=== PATIENT | male | born 1985 | race Caucasian/White ===

== ENCOUNTER 2019-02-09 14:00 | Outpatient (RCR) | payer BC, SELFPAY ==
--- NOTE | 2019-01-03 11:56 | HP.PTEVAL_ITS ---
Patient's Visit Information JOSIANE HOWARD is a 33 year old M referred to Physical Therapy by Chintan Doll MD with a diagnosis of chronic knee pain. Date of Evaluation: 01/03/19 Physical Therapist: ANSON Engel - Visit Plan Frequency: 2x /Week Duration: 4 Weeks Plan: 2X/ week for 4 weeks for R knee and hip strengthening, stretching, OHS mechanics, stairs mechancis with HEP and modalities PRN..... also to give a [employer] gym routine. - Subjective Findings: Pt reports that his R knee has been bothering him and swelling for years now. About a year ago the swelling increased and stay longer and increased pain. 3 months ago it swelled up and did not come back down. Gave meloxicam and x-ray... cartilage. Ortho said lucila, PT and then possible MRI and scope. He wants a program to get stronger... and then either MRI or corizone shot. When it is not swelled up he can do anything but run. SInce the swelling has not got down, it feels weak and stairs bother it and walking too long increases swelling. He has popping sometimes or may hyper-extend. He put a lot of weight on the railing. He is a [employer] member and does the eliptical and upper body. He wears a cloth brace and that helps in the moment. He feels that the meloxicam helps. He has a desk job. - Pain R knee pain Pain Intensity (Out of 10): 0 Pain Intensity Range: 9 - Objective Gait: Walks with decrease stance time on the right. Knee AROM: normal AROM of the R knee. Stairs: decrease eccentric control descending stairs and gastroc tightness. Tight R HS, gastroc and Quad. LE MMT: hip flexion B 4+/5, knee ext R 4/5 and L 4+/5, Knee flex R 4/5 and L 4+/5, B hip abd 4+/5, B hip ext 4/5. + pain with mcmurrays on the R with valgus at 90 degrees. OHS: decreased stance onthe R LE. SLB R 20 sec straight knee and SLB R with bend knee 15 sweconds. SLB L 15 seconds with straight knee and 30 seconds with bent knee - Goals Goal 1:: I HEP Goal Time Frame: 4-6 Weeks Goal 2:: Increase gait pattern to walk with normal gait pattern Goal Time Frame: 4-6 Weeks Goal 3:: Be able to go up and down stairs recip without a railing smoothly without antalgic gait Goal Time Frame: 4-6 Weeks Goal 4:: Be able to perform a normal OHS without weight shifting away from the R LE Goal Time Frame: 4-6 Weeks Goal 5:: Increase HS, gastroc and quad felxibiltiyt on the R. Goal Time Frame: 4-6 Weeks - Rehabilitation Potential Rehabilitation Potential: Good - Anticipated Interventions Patient/Client Instruction: Educate patient on: Condition, Plan of Care For the Purpose of:: To decrease pain, To decrease swelling/inflammation, To increase ROM, To improve nutrient delivery to tissue, To improve muscle performance and motor function, To improve ability to perform ADL's, To increase tolerance to activity/condition/position, To improve performance and independence with ADL's, To improve ability of physical actions for home/community/work/leisure, To improve gait and locomotor functions, To improve health of tissue, To increase flexibility/ROM, To improve balance Therapeutic Exercise to Include: Strength training, Flexibilty training, Gait an d locomotor training, Active ROM For the Purpose of:: To decrease pain, To decrease swelling/inflammation, To increase ROM, To improve nutrient delivery to tissue, To improve ability to perform ADL's, To increase tolerance to activity/condition/position, To improve ability of physical actions for home/community/work/leisure, To improve gait and locomotor functions, To improve health of tissue, To decrease soft tissue restriction, To increase flexibility/ROM IF ES: Yes Thermo therapy (hot pack): Yes Ultrasound (thermal/non thermal): Yes For the Purpose of:: To decrease pain, To decrease swelling/inflammation, To increase ROM, To improve nutrient delivery to tissue Thank you for the opportunity to evaluate your patient. For Medicare and Medicare HMO plans, please review the plan of care and approve it. It will need to be FAXED BACK to us at [phone] for Medicare purposes. For Medicare only, by signing this I certify the plan of care. Please let me know if there are questions or concerns regarding this plan of care. Physician Signature: Date:
--- NOTE | 2019-02-09 14:25 | HP.PTEVAL_ITS ---
Patient's Visit Information JOSIANE HOWARD is a 33 year old M referred to Physical Therapy by Chintan Doll MD with a diagnosis of chronic knee pain. Date of Evaluation: 01/03/19 Physical Therapist: ANSON Engel - Visit Plan Frequency: 2x /Week Duration: 4 Weeks Plan: DC PT to [facility] - Subjective Findings: Pt reports that his R knee has been bothering him and swelling for years now. About a year ago the swelling increased and stay longer and increased pain. 3 months ago it swelled up and did not come back down. Gave meloxicam and x-ray... cartilage. Ortho said cortizone, PT and then possible MRI and scope. He wants a program to get stronger... and then either MRI or corizone shot. When it is not swelled up he can do anything but run. SInce the swelling has not got down, it feels weak and stairs bother it and walking too long increases swelling. He has popping sometimes or may hyper-extend. He put a lot of weight on the railing. He is a [employer] member and does the eliptical and upper body. He wears a cloth brace and that helps in the moment. He feels that the meloxicam helps. He has a desk job. - Pain R knee pain Pain Intensity (Out of 10): 0 Pain Intensity Range: 9 - Objective Gait: Walks with decrease stance time on the right. Knee AROM: normal AROM of the R knee. Stairs: decrease eccentric control descending stairs and gastroc tightness. Tight R HS, gastroc and Quad. LE MMT: hip flexion B 4+/5, knee ext R 4/5 and L 4+/5, Knee flex R 4/5 and L 4+/5, B hip abd 4+/5, B hip ext 4/5. + pain with mcmurrays on the R with valgus at 90 degrees. OHS: decreased stance onthe R LE. SLB R 20 sec straight knee and SLB R with bend knee 15 sweconds. SLB L 15 seconds with straight knee and 30 seconds with bent knee - Goals Goal 1:: I HEP Goal Time Frame: 4-6 Weeks Goal 2:: Increase gait pattern to walk with normal gait pattern Goal Time Frame: 4-6 Weeks Goal 3:: Be able to go up and down stairs recip without a railing smoothly without antalgic gait Goal Time Frame: 4-6 Weeks Goal 4:: Be able to perform a normal OHS without weight shifting away from the R LE Goal Time Frame: 4-6 Weeks Goal 5:: Increase HS, gastroc and quad felxibiltiyt on the R. Goal Time Frame: 4-6 Weeks - Rehabilitation Potential Rehabilitation Potential: Good - Anticipated Interventions Patient/Client Instruction: Educate patient on: Condition, Plan of Care For the Purpose of:: To decrease pain, To decrease swelling/inflammation, To increase ROM, To improve nutrient delivery to tissue, To improve muscle performance and motor function, To improve ability to perform ADL's, To increase tolerance to activity/condition/position, To improve performance and independence with ADL's, To improve ability of physical actions for gene e/community/work/leisure, To improve gait and locomotor functions, To improve health of tissue, To increase flexibility/ROM, To improve balance Therapeutic Exercise to Include: Strength training, Flexibilty training, Gait and locomotor training, Active ROM For the Purpose of:: To decrease pain, To decrease swelling/inflammation, To increase ROM, To improve nutrient delivery to tissue, To improve ability to perform ADL's, To increase tolerance to activity/condition/position, To improve ability of physical actions for home/community/work/leisure, To improve gait and locomotor functions, To improve health of tissue, To decrease soft tissue restriction, To increase flexibility/ROM IF ES: Yes Thermo therapy (hot pack): Yes Ultrasound (thermal/non thermal): Yes For the Purpose of:: To decrease pain, To decrease swelling/inflammation, To increase ROM, To improve nutrient delivery to tissue Thank you for the opportunity to evaluate your patient. For Medicare and Medicare HMO plans, please review the plan of care and approve it. It will need to be FAXED BACK to us at [phone] for Medicare purposes. For Medicare only, by signing this I certify the plan of care. Please let me know if there are questions or concerns regarding this plan of care. Physician Signature: Date:
--- NOTE | 2019-04-04 13:12 | HP.PTDCSUM ---
HP - PT D/C Summary It has been my pleasure to treat JOSIANE HOWARD under orders from Chintan Doll MD, for the diagnosis of chronic knee pain for a total of 8 visit(s). Discharge Date: 04/04/19 Please see the following information for a summary of their discharge status. - Subjective Subjective: He feels that he has gotten a lot stronger. He was playing volley ball and twisted it pretty good but it is feeling better - Pain R knee pain Pain Intensity (Out of 10): 0 - Overall Improvement % Improvement: 70 - Objective Objective/Function: Gait: walks occ with decreased stance time on the R LE. Stairs: up and down recip without a handrail with slightly decreased fluid motion ( eccentric control) on the R LE. OHS: Still kevin shifts away from the R side. I In how to set up gym equipment. Improved overall flexibility but needs to continue to stretch on own after PT - Goals Goal 1:: I HEP Goal Progress: Goal Met Goal 2:: Increase gait pattern to walk with normal gait pattern Goal Progress: Progressing Goal 3:: Be able to go up and down stairs recip without a railing smoothly without antalgic gait Goal Progress: Progressing Goal 4:: Be able to perform a normal OHS without weight shifting away from the R LE Goal Progress: Progressing Goal 5:: Increase HS, gastroc and quad felxibiltiyt on the R. Goal Progress: Progressing - Plan Plan: DC PT to [facility] - D/C Information Discharge Comments: DC PT If there are questions or concerns regarding this patient's physical therapy, please feel free to call me at [phone]. Thank you for the referral of this patient. Sincerely, Valerie Loomis, MPT
== END 2019-02-09 19:00 | disposition home or self-care (01) ==
LOC: PT 14:00
PROVIDERS: PCP Family Medicine; Referring Provider Family Medicine; Visit Provider Orthopaedic Surgery
DX: M25.561 Pain in right knee (principal); M25.461 Effusion, right knee; G89.29 Other chronic pain
CPT/HCPCS: 97014; 97016; 97110; 97161; 97530; G0283

== ENCOUNTER 2021-08-09 04:59 | Emergency (ER) | payer BC, SELFPAY ==
[2021-08-09 05:00] VITALS: BP 132/92; PULSE 70; RESP 18; TEMP 36.6; O2SAT 97; BMI 29.9
--- NOTE | 2021-08-09 05:23 | CT_ITS ---
STUDY: CT ABDOMEN AND PELVIS WITHOUT CONTRAST REASON FOR EXAM: Male, 36 years old. left flank pain RADIATION DOSAGE (If Supplied By Facility): CTDIvol = ( 9.49 ) mGy, DLP = ( 583.30 ) mGycm TECHNIQUE: Transaxial 2.5 mm images were obtained from the dome of the diaphragm to the symphysis pubis without oral contrast, and without intravenous contrast. Sagittal and coronal images were reconstructed. This examination is limited for the evaluation of gastrointestinal, solid organs and vascular structures due to the lack of intravenous and oral contrast. Individualized dose optimization techniques were used for this CT. COMPARISON: None. FINDINGS: The visualized lung bases are unremarkable. The visualized portions of the heart are within normal limits. Normal liver. Normal gallbladder and extrahepatic biliary system. Normal spleen. Normal pancreas. Normal bilateral adrenal glands. Normal right kidney. There is a calculus in the left inferior renal pelvis/pole measuring approximately 0.4 x 0.6 x 0.5 cm with mild dilatation of the renal pelvis to the level of the UPJ. There is minimal perirenal stranding and indistinct contour of the left kidney. The left ureter is nondilated. Normal visualized stomach. Normal small intestine. Normal colon. The appendix is visualized and appears normal. Normal abdominal aorta. Normal inferior vena cava. Normal retroperitoneum. Decompressed urinary bladder. Normal visualized prostate gland. Normal abdominal wall. Normal osseous structures. CT/Abdomen/Pelvis without Cont IMPRESSION: Left inferior renal pole/lower pelvic calculus with mild pelvic dilatation to the level of the UPJ may be a mobile intermittent obstructing calculus. No overt hydronephrosis detected. Similar findings can be seen with inflammation which is statistically less frequent. There is no appendicitis, colitis, ascites, abscess, collection, perforation or obstruction. Electronically Signed: Josy Bray MD at 6:17 EST Reading Location ID and State: , Service support ,
--- NOTE | 2021-08-09 05:24 | EDS_ITS ---
HPI History of Present Illness Chief Complaint: Flank Pain Informant: patient Onset/Context/Timing Onset: Today Current Severity: Mild Maximum Severity: Moderate Narrative Narrative: Patient present secondary to left flank pain that woke him from sleep shortly prior to arrival. He did have some mild nausea. No dysuria or hematuria. Patient did have a kidney stone 7 years ago. No prior abdominal surgeries. PFS PFS Medical History Kidney stone Medical History no medical history Home Medications hydrocodone-acetaminophen 1 tab PO Q6H PRN 3 Days #10 tab 08/09/21 [Rx Last Taken Unknown] ketorolac 10 mg PO Q6H PRN 3 Days #10 tab 08/09/21 [Rx Last Taken Unknown] ondansetron 4 mg PO Q8H PRN #10 tab 08/09/21 [Rx Last Taken Unknown] Allergy/AdvReac Type Severity Reaction Status Date / Time No Known Allergies Allergy Verified 06/22/15 14:23 Surgical History no surgical history Social History Smoking Status: Never smoker ROS ROS ED Constitutional Constitutional ED: Denies chills or fever(s) Eyes Eyes: Denies blurry vision or change in vision ENT ENT ED: Denies ear pain or rhinorrhea Cardiovascular Cardiovascular: Denies chest pain or palpitations Respiratory/Chest Respiratory/Chest: Denies cough or dyspnea Gastrointestinal Gastrointestinal: Reports abdominal pain and nausea; Denies vomiting Genitourinary Genitourinary ED: Denies dysuria or hematuria Musculoskeletal Musculoskeletal: Reports back pain; Denies arthralgias or myalgias Integumentary Denies rash Neurologic Neurologic: Denies headache(s) or weakness Psychiatric Psychiatric: Denies anxiety or depression Allergic/Immunologic Allergic/Immunologic ED: Denies urticaria EXAM Physical Exam Const Vital Signs: 08/09/21 05:00 Temperature 97.8 F Temperature Source Temporal Pulse Rate 70 Respiratory Rate 18 Blood Pressure 132/92 H Blood Pressure Mean 105 Pulse Ox 97 Oxygen Delivery Method Room Air Positive well nourished and well developed General Appearance ED: well developed HEENT Reports moist mucous membranes Eyes PERRL and EOMs intact bilaterally Neck supple Chest Wall inspection of chest normal and palpation of chest normal Resp normal respiratory effort and clear to auscultation bilaterally Cardio regular rate and regular rhythm GI Palpation: soft and tender LLQ Back/Spine no CVA tenderness Neuro oriented x3 Sensorium / Orientation: alert Psych mental status grossly normal Skin no rashes or lesions noted MDM MDM MDM Narrative Medical decision making narrative: Patient is given Toradol and Zofran for pain. Lab work, urinalysis, CT flank obtained. Lab Data Attestation: I reviewed the patient's lab results. Labs: Laboratory Results - last 24 hr 08/09/21 08/09/21 08/09/21 05:25 05:25 05:25 WBC 5.1 RBC 4.89 Hgb 15.2 Hct 42.6 MCV 87.1 MCH 31.1 MCHC 35.7 RDW Std Deviation 38.9 RDW Coeff of Danita 12.3 Plt Count 226 MPV 9.8 Immature Gran % (Auto) 0.200 Neut % (Auto) 39.0 L Lymph % (Auto) 49.7 H [place] % (Auto) 8.2 Eos % (Auto) 2.3 Baso % (Auto) 0.6 Absolute Neuts (auto) 2.0 Absolute Lymphs (auto) 2.55 Nucleated RBC % 0 Sodium 140 Potassium 3.5 Chloride 108 H Carbon Dioxide 27.0 Anion Gap 5 BUN 11 Creatinine 1.08 Estim Creat Clear Calc 111.93 Est GFR (MDRD) Af Amer 99 Est GFR (MDRD) Non-Af 82 BUN/Creatinine Ratio 10.2 Glucose 114 H Calcium 9.1 Urine Color Yellow Urine Clarity Clear Urine pH 5.0 Ur Specific [place] 1.025 Urine Protein 15 H Urine Glucose (UA) Normal Urine Ketones Negative Urine Occult Blood 50 H Urine Nitrite Negative Urine Bilirubin Negative Urine Urobilinogen Normal Ur Leukocyte Esterase Negative Urine RBC 0 SEEN Urine WBC 0 SEEN Ur Squamous Epith Cells 0 SEEN Urine Bacteria 0 SEEN Urine Mucus 0 SEEN Radiography Diagnostic Testing: Clinical Impression(s) from Imaging Studies Abdomen/Pelvis CT 08/09/21 05:23 IMPRESSION: Left inferior renal pole/lower pelvic calculus with mild pelvic dilatation to the level of the UPJ may be a mobile intermittent obstructing calculus. No overt hydronephrosis detected. Similar findings can be seen with inflammation which is statistically less frequent. There is no appendicitis, colitis, ascites, abscess, collection, perforation or obstruction. Electronically Signed: Josy Bray MD at 6:17 EST Reading Location ID and State: , Service support , Treatment and Re-Evaluation Comments:: On repeat evaluation patient resting comfortably with no pain at this time. Lab work unremarkable with normal renal function. Urinalysis with no sign of infection. CT flank reveals a stone at the inferior renal pole with mild dilation to the level of the UPJ. They believe this may be in a mobile intermittent obstructing calculus. This was discussed with the patient. He will be given pain and nausea medicine for home as needed. He is referred to urology for follow-up. Discharge Plan Triage Chief Complaint: Flank Pain ED Provider: Ellen Ward Dx/Rx/DC Orders Clinical Impression: Calculus of left kidney Instructions: ED Kidney Stone w/ Colic Prescriptions: New ketorolac 10 mg tablet 10 mg PO Q6H PRN (Reason: pain) 3 Days Qty: 10 RF: 0 hydrocodone-acetaminophen 5-325 mg tablet 1 tab PO Q6H PRN (Reason: pain) 3 Days Qty: 10 RF: 0 ondansetron 4 mg tablet,disintegrating 4 mg PO Q8H PRN (Reason: nausea and vomiting) Qty: 10 RF: 0 Primary Care Provider: Kunal Ledezma Referrals: Kunal Ledezma MD [Primary Care Provider] - Ti Becker MD [STAFF PHYSICIAN] - 3-5 Days if not improving Disposition Disposition: Home, Self Care
[2021-08-09 05:29] LABS: Absolute Lymphocyte Count 2.55 X10^3/uL (0.83-4.51); Basophil# 0.03 X10^3/uL; Basophil% 0.6 % (0-1); Eosinophil# 0.12 X10^3/uL; Eosinophils% 2.3 % (0-5); Hematocrit 42.6 % (40-54); Hemoglobin 15.2 g/dL (13.0-16.5); Lymphocyte # 2.55 X10^3/ul (0.83-4.51); Lymphocyte % 49.7 % (19-41); Mean Corp Hgb Conc 35.7 g/dL (32-36); Mean Corpuscular Hgb 31.1 pg (27.0-32.0); Mean Corpuscular Volume 87.1 fL (80-94); Mean Platelet Vol. 9.8 fl (6.2-12.0); Monocyte# 0.42 X10^3/uL; Monocyte% 8.2 % (0-10); NRBC Flagged by Analyzer 0 % (0-5); Platelet Count 226 K/mm3 (150-450); RBC Distribution Width CV 12.3 % (11.6-14.6); RBC Distribution Width SD 38.9 fl (35.1-43.9); Red Blood Count 4.89 M/mm3 (4.6-6.2); White Blood Count 5.1 K/mm3 (4.4-11.0)
[2021-08-09] MEDS: 0.9% Normal Saline 1,000 ML 150 ML IV (05:33)
[2021-08-09] MEDS: Ondansetron 4 MG/2 ML Vial IV (05:33)
[2021-08-09] MEDS: Ketorolac 30 MG/ML Syringe IV (05:33)
[2021-08-09 05:34] LABS: Bacteria 0 SEEN /hpf (None Seen); Mucous, Urine 0 SEEN /hpf (<or=2+); Red Blood Cells-Urine 0 SEEN /hpf (0-5); Squamous Epithelial Cells - UA 0 SEEN /hpf (0-5); White Blood Cells 0 SEEN /hpf (0-5)
[2021-08-09 05:35] LABS: Color, Urine Yellow (Yellow); Glucose, Dipstick Normal (Normal); Ketone-Dipstick Negative (Negative); Leukocyte Esterase-Dipstick Negative /ul (Negative); Nitrite-Dipstick Negative (Negative); Occult Blood-Urine 50 /ul (Negative); Protein-Dipstick 15 mg/dl (Negative); Specific Gravity, Urine 1.025 (1.002-1.030); Urine Bilirubin Dipstick Negative (Negative); Urine Clarity Clear (Clear); Urine Urobilinogen Normal (Normal)
[2021-08-09 06:02] LABS: Anion Gap 5 (5-15); BUN 11 mg/dL (7-18); BUN/Creat Ratio 10.2 RATIO (10-20); Calcium,Total 9.1 mg/dL (8.5-10.1); Chloride 108 mmol/L (98-107); Creatinine, Serum 1.08 mg/dL (0.70-1.30); EST Glomerular Filtration Rate 82 mL/min (>60); Est Glom Filt Rate - Afr Amer 99 mL/min (>60); Estimated Creatinine Clearance 111.93 ml/min; Glucose 114 mg/dL (74-106); Potassium 3.5 mmol/L (3.5-5.1); Sodium Level 140 mmol/L (136-145)
[2021-08-09 06:35] VITALS: BP 128/78; PULSE 78; RESP 19; O2SAT 96
== END 2021-08-09 06:36 | disposition home or self-care (01) ==
PROVIDERS: Emergency Provider Emergency Medicine; PCP Family Medicine; Visit Provider Emergency Medicine
DX: N20.0 Calculus of kidney (principal); R11.0 Nausea; Z87.442 Personal history of urinary calculi
CPT/HCPCS: 74176; 80048; 81001; 85025; 99283; J7030; A4216; J2405

== ENCOUNTER 2022-12-20 19:06 | Emergency (ER) | payer BC, SELFPAY ==
[2022-12-20 19:07] VITALS: BP 146/84; PULSE 72; RESP 18; TEMP 36.4; O2SAT 97; BMI 29.7
--- NOTE | 2022-12-20 19:33 | EX.ED.DYSGE1 ---
HPI History of Present Illness Chief Complaint: Flank Pain Detail of Chief Complaint: Left flank pain Informant: patient Onset/Context/Timing Onset: Today Narrative Narrative: Patient presents secondary to increased left flank pain. He had lithotripsy performed 2 days ago. He believes his stone was somewhere between 7 and 10 mm. He states he felt well yesterday and was only taking Tylenol. He had increased pain today. He did take hydrocodone earlier today without improvement. He states he is passing some small stones. He is not noticing bloody urine. [facility] Medical History Kidney stone Home Medications hydrocodone-acetaminophen 5-325mg 5mg-325mg 1 tab PO Q6H PRN pain 3 days #10 tabs 08/09/21 [Rx Last Taken Unknown] ketorolac 10 mg tablet 10 mg PO Q6H PRN pain 3 days #10 tabs 08/09/21 [Rx Last Taken Unknown] ondansetron 4 mg disintegrating tablet 4 mg PO Q8H PRN nausea and vomiting #10 tabs 08/09/21 [Rx Last Taken Unknown] Allergy/AdvReac Type Severity Reaction Status Date / Time No Known Allergies Allergy Verified 12/20/22 19:07 Social History Smoking Status: Never smoker ROS ROS ED Constitutional Constitutional ED: Denies chills or fever(s) Eyes Eyes: Denies change in vision or discharge from eye(s) ENT ENT ED: Denies discharge from eye(s), rhinorrhea or sore throat Cardiovascular Cardiovascular: Denies chest pain or palpitations Respiratory/Chest Respiratory/Chest: Denies cough or dyspnea Gastrointestinal Gastrointestinal: Reports abdominal pain; Denies diarrhea, nausea or vomiting Genitourinary Genitourinary ED: Denies dysuria Musculoskeletal Musculoskeletal: Reports back pain; Denies extremity pain Integumentary Denies Abrasions or rash Neurologic Neurologic: Denies headache(s) or weakness Psychiatric Psychiatric: Denies anxiety or depression Allergic/Immunologic Allergic/Immunologic ED: Denies lip swelling or urticaria EXAM Physical Exam Const Vital Signs: 12/20/22 19:07 12/20/22 21:06 Temperature 97.6 F L Temperature Source Temporal Pulse Rate 72 78 Respiratory Rate 18 14 Blood Pressure 146/84 H 126/78 H Blood Pressure Mean 104 94 Pulse Ox 97 99 Oxygen Delivery Method Room Air Positive well nourished and well developed General Appearance ED: well developed HEENT Reports normocephalic and head/scalp atraumatic Eyes PERRL and EOMs intact bilaterally Neck supple Chest Wall inspection of chest normal and palpation of chest normal Resp normal respiratory effort and clear to auscultation bilaterally Cardio regular rate and regular rhythm GI non-tender Auscultation: hypoactive bowel sounds Palpation: soft Extremity normal to inspection Neuro oriented x3 and no sensory deficits noted Sensorium / Orientation: alert Motor Exam: strength 5/5 throughout Psych mental status grossly normal Skin no rashes or lesions noted MDM MDM MDM Narrative Medical decision making narrative: Patient was given morphine, Zofran, Toradol, IV fluids. Labwork obtained to evaluate for leukocytosis, anemia, and electrolyte derangement. Urinalysis obtained to evaluate for infection/hematuria. KUB obtained to evaluate for kidney stone or enlarged kidney. Lab Data Attestation: I reviewed the patient's lab results. Labs: Laboratory Results - last 24 hr 12/20/22 12/20/22 19:35 20:00 WBC 7.2 RBC 4.77 Hgb 14.4 Hct 41.0 MCV 86.0 MCH 30.2 MCHC 35.1 RDW Std Deviation 37.5 RDW Coeff of Danita 12.0 Plt Count 190 MPV 9.5 Immature Gran % (Auto) 0.300 Neut % (Auto) 57.3 Lymph % (Auto) 35.2 [place] % (Auto) 5.8 Eos % (Auto) 1.0 Baso % (Auto) 0.4 Absolute Neuts (auto) 4.1 Absolute Lymphs (auto) 2.54 Nucleated RBC % 0 Sodium 138 Potassium 3.4 L Chloride 104 Carbon Dioxide 30.0 Anion Gap 4 L BUN 14 Creatinine 1.06 Estim Creat Clear Calc 112.93 Est GFR (MDRD) Af Amer 100 Est GFR (MDRD) Non-Af 83 BUN/Creatinine Ratio 13.2 Glucose 137 H Calcium 8.8 Total Bilirubin 0.50 AST 24 ALT 43 Alkaline Phosphatase 55 Total Protein 6.9 Albumin 3.9 Globulin 3.0 Albumin/Globulin Ratio 1.3 Urine Color Yellow Urine Clarity Clear Urine pH 5.0 Ur Specific [place] 1.025 Urine Protein 30 H Urine Glucose (UA) Normal Urine Ketones Negative Urine Occult Blood 250 H Urine Nitrite Negative Urine Bilirubin Negative Urine Urobilinogen Normal Ur Leukocyte Esterase 25 H Urine RBC 50-100 SEEN Urine WBC 0-5 SEEN Ur Squamous Epith Cells 0 SEEN Urine Bacteria 0 SEEN Urine Mucus 0 SEEN Radiography Diagnostic Testing: Clinical Impression(s) from Imaging Studies KUB X-Ray 12/20/22 20:00 IMPRESSION: No renal or ureteral calcifications seen. Electronically Signed: Julio White MD at 21:15 EDT , Treatment and Re-Evaluation :: CBC was normal white count 7.2 with a hemoglobin of 14.4. Chemistry studies reveal slightly low potassium at 3.4. BUN is 14 and creatinine is 1.06. Glucose is 137. LFTs are unremarkable. Urinalysis reveals 50-100 RBCs with no sign of infection. KUB per my interpretation reveals no obvious calcifications on the left. No obvious hydronephrosis or kidney enlargement. Radiology interpretation is reviewed and agrees. On repeat evaluation patient resting more comfortably. Test results are discussed with him. I did recommend he start taking ibuprofen 3 times a day to help with ureteral spasm. He has hydrocodone at home that he can use for breakthrough pain. Return instructions given. Discharge Plan Triage Chief Complaint: Flank Pain ED Provider: Ellen Ward Dx/Rx/DC Orders Clinical Impression: Flank pain Instructions: ED Kidney Stone w/ Colic Prescriptions: No Action ketorolac 10 mg tablet 10 mg PO Q6H PRN (Reason: pain) 3 Days Qty: 10 0RF hydrocodone-acetaminophen 5-325 mg tablet 1 tab PO Q6H PRN (Reason: pain) 3 Days Qty: 10 0RF ondansetron 4 mg tablet,disintegrating 4 mg PO Q8H PRN (Reason: nausea and vomiting) Qty: 10 0RF Primary Care Provider: Kunal Ledezma Referrals: Kunal Ledezma MD [Primary Care Provider] - Activity Restrictions/Additional Instructions: Follow-up with your urologist as scheduled. Disposition Disposition: Home, Self Care
[2022-12-20 19:42] LABS: Absolute Lymphocyte Count 2.54 X10^3/uL (0.83-4.51); Absolute Neutrophil Count 4.1 X10^3/uL (2.0-7.7); Basophil# 0.03 X10^3/uL; Basophil% 0.4 % (0-1); Eosinophil# 0.07 X10^3/uL; Hemoglobin 14.4 g/dL (13.0-16.5); Lymphocyte # 2.54 X10^3/ul (0.83-4.51); Lymphocyte % 35.2 % (19-41); Mean Corp Hgb Conc 35.1 g/dL (32-36); Mean Corpuscular Hgb 30.2 pg (27.0-32.0); Mean Platelet Vol. 9.5 fl (6.2-12.0); Monocyte# 0.42 X10^3/uL; Monocyte% 5.8 % (0-10); NRBC Flagged by Analyzer 0 % (0-5); Neutrophil # 4.13 X10^3/uL (2.7-7.7); Neutrophil % 57.3 % (47-70); Platelet Count 190 K/mm3 (150-450); RBC Distribution Width SD 37.5 fl (35.1-43.9); Red Blood Count 4.77 M/mm3 (4.6-6.2); White Blood Count 7.2 K/mm3 (4.4-11.0)
[2022-12-20] MEDS: 0.9% Normal Saline 1,000 ML 150 ML IV (19:54)
[2022-12-20] MEDS: Ondansetron 4 MG/2 ML Vial IV (19:54)
[2022-12-20] MEDS: Ketorolac 30 MG/ML Syringe IV (19:54)
[2022-12-20] MEDS: Morphine 4 MG/ML Syringe IV (19:55)
--- NOTE | 2022-12-20 20:00 | RAD_ITS ---
INDICATION: flank pain s/p lithotripsy EXAMINATION/TECHNIQUE: X-RAY - XR Abdomen 1 View COMPARISON: None FINDINGS: BOWEL GAS PATTERN: Non-obstructive. No bowel or stomach distention. FREE AIR: Not assessed on a single supine view. ORGANOMEGALY: Not seen. CALCIFICATIONS: No abnormal calcifications observed. LOWER CHEST: No acute pathology. BONES AND SOFT TISSUES: No acute pathology. RAD/Abdomen Single View IMPRESSION: No renal or ureteral calcifications seen. Electronically Signed: Julio White MD at 21:15 EDT ,
[2022-12-20 20:05] LABS: Bacteria 0 SEEN /hpf (None Seen); Mucous, Urine 0 SEEN /hpf (<or=2+); Squamous Epithelial Cells - UA 0 SEEN /hpf (0-5)
[2022-12-20 20:07] LABS: Color, Urine Yellow (Yellow); Glucose, Dipstick Normal (Normal); Ketone-Dipstick Negative (Negative); Leukocyte Esterase-Dipstick 25 /ul (Negative); Nitrite-Dipstick Negative (Negative); Occult Blood-Urine 250 /ul (Negative); Protein-Dipstick 30 mg/dl (Negative); Specific Gravity, Urine 1.025 (1.002-1.030); Urine Bilirubin Dipstick Negative (Negative); Urine Clarity Clear (Clear); Urine Urobilinogen Normal (Normal)
[2022-12-20 20:08] LABS: ALB/GLOB Ratio 1.3 RATIO (0.9-2.4); AST(SGOT) 24 U/L (15-37); Alanine Aminotransfer ALT/SGPT 43 U/L (16-61); Albumin, Serum 3.9 g/dL (3.2-5.0); Alkaline Phosphatase 55 U/L (45-117); Anion Gap 4 (5-15); BUN 14 mg/dL (7-18); BUN/Creat Ratio 13.2 RATIO (10-20); Calcium,Total 8.8 mg/dL (8.5-10.1); Chloride 104 mmol/L (98-107); Creatinine, Serum 1.06 mg/dL (0.70-1.30); EST Glomerular Filtration Rate 83 mL/min (>60); Est Glom Filt Rate - Afr Amer 100 mL/min (>60); Estimated Creatinine Clearance 112.93 ml/min; Glucose 137 mg/dL (74-106); Potassium 3.4 mmol/L (3.5-5.1); Protein, Total 6.9 g/dL (6.4-8.2); Sodium Level 138 mmol/L (136-145)
[2022-12-20 20:28] LABS: Red Blood Cells-Urine 50-100 SEEN /hpf (0-5); White Blood Cells 0-5 SEEN /hpf (0-5)
[2022-12-20 21:06] VITALS: BP 126/78; PULSE 78; RESP 14; O2SAT 99
[2022-12-20 21:37] VITALS: BP 129/76; PULSE 64; RESP 14; TEMP 36.4; O2SAT 100
== END 2022-12-20 21:38 | disposition home or self-care (01) ==
PROVIDERS: Emergency Provider Emergency Medicine; PCP Family Medicine; Visit Provider Emergency Medicine
DX: R10.9 Unspecified abdominal pain (principal)
CPT/HCPCS: 74018; 80053; 81001; 85025; 96361; 96374; 96375; 99284; J7030; A4216; J2405

== ENCOUNTER → 2025-05-25 | Outpatient (CLI) | payer BC, SELFPAY ==
--- NOTE | 2025-05-25 14:48 | RAD_ITS ---
PROCEDURE: ABDOMEN SINGLE VIEW 05/25/2025 REASON FOR EXAM: CALCULUS OF KIDNEY TECHNIQUE: Procedure Code: RADABD Modality: DX Procedure: ABDOMEN SINGLE VIEW COMPARISON: 12/20/2022 FINDINGS: Normal gastrointestinal gas pattern seen. No stool noted in large bowel loops. No pneumoperitoneum. Visualized bones appear unremarkable. No pathological abdominal calcifications noted. RAD/Abdomen Single View IMPRESSION: Previous noted left renal stone is not seen a this time. Non-obstructive bowel gas pattern. [facility]
== END | disposition home or self-care (01) ==
PROVIDERS: PCP Family Medicine; Referring Provider Urology; Visit Provider Urology
DX: N20.0 Calculus of kidney (principal)
CPT/HCPCS: 74018